=== PATIENT | female | born 1960 | race Two or more races ===

== ENCOUNTER 2025-04-13 14:15 | Emergency (ER) | payer MEDICAID, OTHER ==
[~2025-04-13] VITALS: Ht 170.2 cm; Wt 81.8 kg
[~2025-04-13 14:15] MED LIST: ALBU18 IN; AMIT-399 PO; ASPI81CH43 PO; ATOR-507 PO; CYCL-837 PO; PANT40TA2 PO
[2025-04-13] MEDS: MORPHINE SULFATE 4 MG/ML SYR/VIAL IM ONE (15:36)
[2025-04-13 15:39] VITALS: BP 143/78; PULSE 69; RESP 18; TEMP 98.5; O2SAT 96
--- NOTE | 2025-04-13 15:52 | ED.PDOC ---
General HPI Comments 64 year old female presents for pelvic pain. Chief Complaint: Urinary Time Seen by MD: 15:22 Primary Care Provider: UNKNOWN Reviewed notes: Nurses Notes, Medications, Allergies Allergies: Coded Allergies: NO KNOWN ALLERGIES (Unverified , 07/27/17) Home Meds Active Scripts Pantoprazole Sodium Sesquihydr (Protonix) 40 Mg Tab, 40 MG PO DAILY, #30 TAB Prov:DAVID COREA MD 07/28/17 Aspirin (Asa) 81 Mg Ch, 81 MG PO DAILY, #90 Prov:DAVID COREA MD 07/28/17 Reported Medications Albuterol Sulfate (Ventolin Hfa) Aer, 2 PUFF IN PRN PRN for SHORTNESS OF BREATH, AER 03/03/17 Atorvastatin Calcium (Lipitor) 40 Mg Tab, 40 MG PO HS, TAB 03/03/17 Amitriptyline HCl (Amitriptyline HCl) 10 Mg Tab, 10 MG PO HS, TAB 03/03/17 Cyclobenzaprine Hcl (Cyclobenzaprine Hcl) 5 Mg Tab, 10 MG PO BIDP PRN for FOR MUSCLE SPASM, TAB 03/03/17 Past Medical History PAST MEDICAL HISTORY: CVA Surgical History: Denies all surgeries CHIROPRACTOR SOLE PRACTITIONER History: No Pertinent CHIROPRACTOR SOLE PRACTITIONER History Family History Family History: Unobtainable Social History Smoker: Non-Smoker, Quit Greater Than 1 Year Alcohol: Denies ETOH Use Drugs: Denies Drug Use Lives In: Home All Other Systems: Reviewed and Negative (PER HPI) Physical Exam General Appearance: No Apparent Distress, Normal HEENT: Normal ENT Inspection, Pharynx Normal, TMs Normal Neck: Full Range of Motion, Non-Tender, Normal, Normal Inspection Respiratory: Chest Non-Tender, Lungs Clear, No Accessory Muscle Use, No Respiratory Distress, Normal Breath Sounds Cardiovascular: No Edema, No JVD, No Murmur, No Gallop, Normal Peripheral Pulses, Regular Rate/Rhythm Breast Exam: Deferred Gastrointestinal: No Organomegaly, Non Tender, No Pulsatile Mass, Normal Bowel Sounds, Soft Genitalia: Deferred Pelvic: Deferred Rectal: Deferred Extremities: No calf tenderness, Normal capillary refill, Normal inspection, Normal range of motion, Non-tender, No pedal edema Musculoskeletal : Apperance: Normal Neurologic: Alert, transportation planning technician II-XII nml as Tested, No Motor Deficits, Normal Affect, Normal Mood, No Sensory Deficits Cerebellar Function: Normal Reflexes: Normal Skin: Dry, Normal Color, Warm Lymphatic: No Adenopathy Was a procedure done? Was a procedure done?: No Differential Diagnosis Kidney stone (Female): Other X-Ray, Labs, Meds, VS Vital Signs Date Time Temp Pulse Resp B/P (MAP) Pulse Ox O2 Delivery O2 Flow Rate FiO2 04/13/25 15:39 98.5 69 18 143/78 (99) 96 98.5 04/13/25 15:36 79 16 148/78 04/13/25 14:20 98.6 89 14 149/89 100 98.6 Current Medications Medications (Trade) Dose Ordered Sig/Karen Route Start Time Stop Time Status Last Admin Morphine Sulfate 4 mg ONCE ONCE IM 04/13/25 15:30 04/13/25 15:31 DC 04/13/25 15:36 X-Ray, Labs, Meds, VS Comment This patient has elected to leave against medical advice. In my opinion, the patient has capacity to leave AMA. The patient is clinically sober, free from distracting injury, appears to have intact insight, judgment, and reason; therefore, the patient has the capacity to make decisions. I explained to the patient that these symptoms may represent a serious underlying medical condition and the patient verbalized understanding of my concerns and understands the consequences of leaving without complete evaluation. I had a discussion with the patient about their workup and results, and informed the patient what the next step in diagnosis and treatment would be, and they verbalized understanding of this as well. I explained the risks of leaving without further workup or treatment, which included reasonably foreseeable complications such as , serious injury, prolonged illness, and permanent disability. I discussed the specific benefits of additional treatment and also offered alternatives to departing AMA, such as assigning the patient a different provider or an alternate workup pathway. However, the patient declined and insisted on leaving against medical advice. I answered all of the patient's questions about their condition and I asked them to follow up with their PCP as soon as possible or return to this ER for further evaluation whenever they choose. Patient voiced understanding. Time of 1ST Reevaluation: 15:00 Reevaluation 1ST: Unchanged Patient Education/Counseling: Diagnosis, Treatment Family Education/Counseling: Diagnosis, Treatment SEPSIS Sepsis Screen Vital Signs Date Time Temp Pulse Resp B/P (MAP) Pulse Ox O2 Delivery O2 Flow Rate FiO2 04/13/25 15:39 98.5 69 18 143/78 (99) 96 98.5 04/13/25 15:36 79 16 148/78 04/13/25 14:20 98.6 89 14 149/89 100 98.6 Departure 1 Departure Time of Disposition: 15:52 Impression: Primary Impression: Left against medical advice Disposition: 07 LEFT AGAINST MEDICAL ADVICE Condition: Serious Critical Care Note Critical Care Time?: No Stability Stability form required: No Heart Score Heart Score: Heart Score Response (Comments) Value History N/A 0 EKG N/A 0 Age N/A 0 Risk Factors N/A 0 Troponin N/A 0 Total 0 DORIS KAY NP Apr 13, 2025 15:52
== END 2025-04-13 15:51 | disposition left against medical advice (07) ==
LOC: ER 14:15 → EDBD 14:15 → ER 15:51
DX: R10.2 Pelvic and perineal pain (principal); Z86.73 Personal history of transient ischemic attack (TIA), and cerebral infarction without residual deficits; Z79.899 Other long term (current) drug therapy
CPT/HCPCS: 96372; 99283; J2270